=== PATIENT | female | born 1995 | race Caucasian/White ===

== ENCOUNTER 2019-01-13 13:13 | Emergency (ER) | payer MEDICAID ==
[2019-01-13] MEDS: DEXAMETHASONE 10 MG/ML 1 ML INJ IM (14:05)
[2019-01-13] MEDS: LEVALBUTEROL (NEB) 1.25 MG/0.5 ML AMP HHN ×2 (14:11→14:54)
== END 2019-01-13 15:17 | disposition home or self-care (01) ==
LOC: FTE 15:17
DX: J06.9 Acute upper respiratory infection, unspecified (principal)
CPT/HCPCS: 94640; 94664; 96372; 99284-25